=== PATIENT | male | born 1995 | race Asian ===

== ENCOUNTER → 2016-10-11 | Outpatient (CLI) | payer OTHER ==
--- NOTE | 2016-10-11 16:01 | DX ---
Right great toe, 3 views History: Pain, acute gout Comparison: August 01, 2014 right foot Findings: There is chronic or recurrent soft tissue swelling medial to the first metatarsal head. The re is no underlying erosive change or overlying soft tissue calcification. General mineralization is normal. Impression: Bursitis, possibly related to gout. No underlying bone abnormality.
== END ==
LOC: BRMIMAGING 14:34
PROVIDERS: ATTEND Physician Assistant
DX: M77.51 Other enthesopathy of right foot and ankle (principal); M10.9 Gout, unspecified
CPT/HCPCS: 73660-PO